=== PATIENT | female | born 1990 | race Caucasian/White ===

== ENCOUNTER 2017-01-27 23:51 | Emergency (ER) | payer OTHER ==
[~2017-01-27 23:51] MED LIST: ACETAMINOPHEN500 MG PO; PRENATAL1 TAB; VICODIN EQUIVAL1 TAB PO
--- NOTE | 2017-01-28 02:14 | ED CLINICAL REPORT ---
Clinical Report - Physicians/Mid Levels [facility] [address] [place] [place] [address] 01/27/2017 23:51 Patient: LORI PEARSON Time Seen: 00:26 Jan 28 2017. Arrived- By private vehicle. Historian- patient. CPT: ER phys charges level 3 (#[id number]). HISTORY OF PRESENT ILLNESS Chief Complaint: SINUS PAIN. This started today This morning woke up with this.; This started today. She has had moderate sinus pain and chills. Reports muscle aches and experiencing sweating episodes. ( Lymphadenopathy; denies ST just states her nodes are swollen). and is still present. The illness is described as moderate. The patient has had a mild cough productive of green sputum. She has had sinus pressure, chills and muscle aches. No sore throat. Additional history - No known contact with a sick individual. Similar symptoms previously: As bad. Diagnosis: sinusitis. Recent medical care: Not recently seen/assessed. REVIEW OF SYSTEMS No headache, eye discomfort, nausea, vomiting or diarrhea. No abdominal pain, hay fever, pedal edema, calf pain or difficulty with urination. No skin rash. She has had enlarged lymph nodes. All systems otherwise negative, except as recorded above. PAST HISTORY Bronchospasm. URI. Tension-Type Headache. Sinusitis. Dental Caries. Asthma. Tonsillitis. Back Pain. Immunizations. LNMP - Last Normal Menstrual Period. ADDITIONAL SURGERIES: Tonsillectomy. Medications: None. Allergies: Penicillins. SOCIAL HISTORY Alcohol use. History of drug use: marijuana. ADDITIONAL NOTES The nursing notes have been reviewed. PHYSICAL EXAM Vital Signs: 01/27/2017 23:56 BP: 136/79. HR: 111. RR: 18. O2 saturation: 96%. Temp: 99 F. Pain level now: 9/10. Appearance: Alert. Anxious. Patient in mild distress. Head: Tenderness present to percussion/palpation of the sinuses: moderate right and left maxillary tenderness. Eyes: Pupils equal, round and reactive to light. Eyes normal inspection. ENT: Ears normal. Nose normal. Pharynx normal. Uvula midline. Neck: Normal inspection. Neck supple. CVS: Normal heart rate and rhythm. Heart sounds normal. Pulses normal. Respiratory: No respiratory distress. Expiratory wheezes in the right and left upper lung anteriorly. Abdomen: Soft and nontender. Back: Normal inspection. Skin: Skin warm. Normal skin color. No rash. Extremities: Extremities exhibit normal ROM. No calf tenderness. No lower extremity edema. Neuro: Oriented X 3. No motor deficit. No sensory deficit. LABS, X-RAYS, AND EKG Laboratory Tests: Rapid Influenza Screen: (SAILAJA: 01/28/2017 00:00) ( MsgRcvd 01/28/2017 00:22) Final results SPECIMEN DESCRIPTION: NASAL PHARYNGEAL Test Result Flag Units (Reference) RAPID INFLUENZA SCREEN DATE: 01/28/17 INFLUENZA A: NEGATIVE SCREEN FOR INFLUENZA A INFLUENZA B: NEGATIVE SCREEN FOR INFLUENZA B . Note - Tests: (Latham sinus negative.). PROGRESS AND PROCEDURES Patient/family counseled. Disposition: Discharged. Condition: stable. CLINICAL IMPRESSION Acute bacterial bronchitis. Acute maxillary sinusitis. INSTRUCTIONS No strenuous activity. Rest. Do not work for two days until better. Drink plenty of fluids. Warnings: Further evaluation is necessary. GENERAL WARNINGS: Return or contact your physician immediately if your condition worsens or changes unexpectedly, if not improving as expected, or if other problems arise. Prescription Medications: Albuterol HFA oral inhaler: inhale 2 puffs via spacer every 4 hours as needed for wheezing or difficulty breathing, until symptoms improve. Dispense one (1) unit. No refill. Zithromax 250 mg tablets: take 1 orally every day for 4 days. Total course 4 days. No refills. Substitution is permissible. OTC Medications: Acetaminophen (available over the counter): take according to label instructions. Follow-up: Follow up with your doctor in two days if not better. Understanding of the discharge instructions verbalized by patient. (Electronically signed by Kaz Baird MD 01/31/2017 10:50)
--- NOTE | 2017-01-28 02:14 | ED CLINICAL REPORT ---
Clinical Report - Physicians/Mid Levels [facility] [address] [place] [place] [address] 01/27/2017 23:51 Patient: LORI PEARSON Time Seen: 00:26 Jan 28 2017. Arrived- By private vehicle. Historian- patient. CPT: ER phys charges level 3 (#[id number]). HISTORY OF PRESENT ILLNESS Chief Complaint: SINUS PAIN. This started today This morning woke up with this.; This started today. She has had moderate sinus pain and chills. Reports muscle aches and experiencing sweating episodes. ( Lymphadenopathy; denies ST just states her nodes are swollen). and is still present. The illness is described as moderate. The patient has had a mild cough productive of green sputum. She has had sinus pressure, chills and muscle aches. No sore throat. Additional history - No known contact with a sick individual. Similar symptoms previously: As bad. Diagnosis: sinusitis. Recent medical care: Not recently seen/assessed. REVIEW OF SYSTEMS No headache, eye discomfort, nausea, vomiting or diarrhea. No abdominal pain, hay fever, pedal edema, calf pain or difficulty with urination. No skin rash. She has had enlarged lymph nodes. All systems otherwise negative, except as recorded above. PAST HISTORY Bronchospasm. URI. Tension-Type Headache. Sinusitis. Dental Caries. Asthma. Tonsillitis. Back Pain. Immunizations. LNMP - Last Normal Menstrual Period. ADDITIONAL SURGERIES: Tonsillectomy. Medications: None. Allergies: Penicillins. SOCIAL HISTORY Alcohol use. History of drug use: marijuana. ADDITIONAL NOTES The nursing notes have been reviewed. PHYSICAL EXAM Vital Signs: 01/27/2017 23:56 BP: 136/79. HR: 111. RR: 18. O2 saturation: 96%. Temp: 99 F. Pain level now: 9/10. Appearance: Alert. Anxious. Patient in mild distress. Head: Tenderness present to percussion/palpation of the sinuses: moderate right and left maxillary tenderness. Eyes: Pupils equal, round and reactive to light. Eyes normal inspection. ENT: Ears normal. Nose normal. Pharynx normal. Uvula midline. Neck: Normal inspection. Neck supple. CVS: Normal heart rate and rhythm. Heart sounds normal. Pulses normal. Respiratory: No respiratory distress. Expiratory wheezes in the right and left upper lung anteriorly. Abdomen: Soft and nontender. Back: Normal inspection. Skin: Skin warm. Normal skin color. No rash. Extremities: Extremities exhibit normal ROM. No calf tenderness. No lower extremity edema. Neuro: Oriented X 3. No motor deficit. No sensory deficit. LABS, X-RAYS, AND EKG Laboratory Tests: Rapid Influenza Screen: (SAILAJA: 01/28/2017 00:00) ( MsgRcvd 01/28/2017 00:22) Final results SPECIMEN DESCRIPTION: NASAL PHARYNGEAL Test Result Flag Units (Reference) RAPID INFLUENZA SCREEN DATE: 01/28/17 INFLUENZA A: NEGATIVE SCREEN FOR INFLUENZA A INFLUENZA B: NEGATIVE SCREEN FOR INFLUENZA B . Note - Tests: (Latham sinus negative.). PROGRESS AND PROCEDURES Patient/family counseled. Disposition: Discharged. Condition: stable. CLINICAL IMPRESSION Acute bacterial bronchitis. Acute maxillary sinusitis. INSTRUCTIONS No strenuous activity. Rest. Do not work for two days until better. Drink plenty of fluids. Warnings: Further evaluation is necessary. GENERAL WARNINGS: Return or contact your physician immediately if your condition worsens or changes unexpectedly, if not improving as expected, or if other problems arise. Prescription Medications: Albuterol HFA oral inhaler: inhale 2 puffs via spacer every 4 hours as needed for wheezing or difficulty breathing, until symptoms improve. Dispense one (1) unit. No refill. Zithromax 250 mg tablets: take 1 orally every day for 4 days. Total course 4 days. No refills. Substitution is permissible. OTC Medications: Acetaminophen (available over the counter): take according to label instructions. Follow-up: Follow up with your doctor in two days if not better. Understanding of the discharge instructions verbalized by patient. (Electronically signed by Kaz Baird MD 01/31/2017 10:50)
--- NOTE | 2017-01-28 02:14 | ED NURSING NOTES ---
Clinical Report - [facility] [address] [address] 01/27/2017 23:51 Patient: LORI PEARSON TRIAGE Triage time 23:56. Acuity: LEVEL 4. Chief Complaint: BODY ACHES and (Onset today. Believes it is a sinus infection. Alleviating factors: none.). Alert. SEPSIS SCREEN: Sepsis Screen: negative. Negative (no infection suspected/documented). --00:00 Chip Mckeon R.N. 23:56 01/27/17. BP: 136/79 (regular adult cuff) taken on the left arm, via an automated monitor, while sitting. HR: 111 (tachycardic). RR: 18 (regular, unlabored and normal). O2 saturation: 96% on room air. Temp: 99 F (oral). Pain level now: 08/11. --00:00 Chip Mckeon R.N. Weight: 113.3 kg stated. Height/Length: 67 inches Per Patient. BMI: 39.2. --23:57 Chip Mckeon R.N. Medications None. --23:59 Chip Mckeon R.N. Medication/allergy information source: the patient. --00:00 Chip Mckeon R.N. Allergies Penicillins. --23:59 Chip Mckeon R.N. History Arrived by private vehicle. Historian: patient. Primary physician (None). This started today. She has had moderate sinus pain and chills. Reports muscle aches and experiencing sweating episodes. ( Lymphadenopathy; denies ST just states her nodes are swollen). 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 (Ibuprofen last dose 01/27/17 AM). PAST MEDICAL HX: Last normal menstrual period- Now. Has not received seasonal influenza immunization. SOCIAL HX: Never smoker. Alcohol use. History of weekly drug use: marijuana. Recently used drugs days ago. She has not traveled outside the [place] The patient was not exposed to MRSA. No infectious disease exposure. ABUSE ASSESSMENT: Abuse assessment: The patient was asked "Do you feel safe in your home?" and "Has anyone hurt you or threatened to hurt you?". No report of abuse. SELF HARM ASSESSMENT: A self harm assessment was performed. The patient answered "no" to the question "Do you have thoughts of harming or killing yourself?" and "Have you recently had thoughts about harming or killing others?". FALL RISK ASSESSMENT: Fall risk assessment completed. No fall risk identified. NUTRITIONAL RISK ASSESSMENT: The nutritional risk assessment revealed no deficiencies. FUNCTIONAL ASSESSMENT: Functional assessment: no impairments noted. LEARNING NEEDS ASSESSMENT: The learning needs assessment revealed no barriers. SKIN INTEGRITY ASSESSMENT: Skin integrity risk assessment completed. No skin integrity risk identified. --00:00 Chip Mckeon R.N. PROBLEMS: Bronchospasm. URI. Tension-Type Headache. Sinusitis. Dental Caries. Asthma. Tonsillitis. Back Pain. Immunizations. LNMP - Last Normal Menstrual Period. --23:59 Chip Mckeon R.N. ADDITIONAL SURGERIES: Tonsillectomy. --23:59 Chip Mckoen R.N. Assessment GENERAL / NEURO / PSYCH: Alert. Oriented X 4. Dunbar Coma Scale: 15- eyes open spontaneously (4); best verbal response- oriented x 4 (5); best motor response- obeys commands (6). Patient appears calm and cooperative. RESPIRATORY: Respirations not labored. SKIN: Skin is warm and dry. --00:00 Chip Mckeon R.N. Interventions ID band on patient. To treatment room. --00:00 Chip Mckeon R.N. PHYSICAL ASSESSMENT Ambulatory to room. GENERAL / NEURO / PSYCH: Alert. Oriented X 4. She appears uncomfortable. HEENT: Right maxillary and left maxillary sinus tenderness present. Right maxillary and left maxillary sinus tenderness present. Right ear within normal limits. Left ear within normal limits. Pharyngeal erythema. Pharynx within normal limits. Voice within normal limits. ( Anterior chain lymphadenopathy.). Mucous membranes are pink. RESPIRATORY: Respirations not labored. Chest nontender. Wheezing present (Very mild wheezes noted to posterior L lower lobe and R mid lobe.). No cough. CVS: Heart sounds within normal limits. Pulses: right radial 2+ and left radial 2+. Capillary refill less than 2 seconds. GI / : Abdomen soft and nontender. SKIN: Hot skin. --00:08 Chip Mckeon R.N. BACK: ( Paraspinal pain in cervical area.). --00:09 Chip Mckeon R.N. NURSING PROGRESS NOTES The initial plan of care for this patient has been created This plan of care was discussed with the patient. Reassurance given to the patient. Two patient identifiers checked. Call light placed in reach. Side rails up x 1. Bed placed in lowest position. Brakes of bed on. Patient ready for evaluation- ED physician notified. --00:00 Chip Mckeon R.N. Patient ID band checked for patient name and birthdate: patient confirmed. Flu swab obtained by RN via nasal swab. Labeled in the presence of the patient and sent to lab. --00:09 Chip Mckeon R.N. 00:47 01/28/2017 Albuterol Neb TX Nebulizer 2.5 mg given. Given by the nurse. Allergies verified and confirmed 5 rights. --00:47 Chip Mckeon R.N. 02:16 01/28/2017 Zithromax PO Tablets 500 mg given. Allergies verified and confirmed 5 rights. --02:16 Chip Mckeon R.N. 02:37 01/28/2017 Zithromax PO Response: no adverse reaction. --02:37 Chip Mckeon R.N. 02:37 01/28/2017 Albuterol Neb TX Response: no adverse reaction symptoms have improved. --02:37 Chip Mckeon R.N. DISPOSITION / DISCHARGE Departure time: 02:37. Condition at departure: stable. The goals identified in the patient's plan of care were met. No learning barriers present. Discharge instructions provided and reviewed with the patient. Reviewed medication(s) side effects, precautions, dosing and course information. Prescription(s) given to the patient (Lori verbalizes importance of finishing all prescribed antibiotics.). Reviewed need for increased fluid intake. Activity restrictions (rest) reviewed. Work note given. Patient verbalized understanding. Written instructions provided in Colombian. ( Lori verbalizes understanding of all d/c instructions including need to f/u with PCP. She has no questions and voices no concerns at this time.). The patient was discharged by the physician. She was discharged home and accompanied by spouse. She left the Emergency Department ambulatory and via private vehicle. Spouse driving. AL COMA SCORE: Dunbar Coma Scale: 15- eyes open spontaneously (4); best verbal response- oriented x 4 (5); best motor response- obeys commands (6). --02:37 Chip Mckeon R.N. 02:35 01/28/17. BP: 117/46 (large adult cuff) taken on the left arm, via an automated monitor, while sitting. HR: 83 (normal rate). RR: 16 (regular, unlabored and normal). O2 saturation: 100% on room air. Temp: 98.7 F (oral). Pain level now: 07/11. --02:37 Chip Mckeon R.N. Locked/Released at 01/28/2017 2:38 by Chip Mckeon R.N.
--- NOTE | 2017-01-28 02:15 | ED ORDER SUMMARY ---
..... Patient: LORI PEARSON OrderSheet [facility] VisitID: [id number] [address] [address] 26y, F Registration Date/Time: 01/27/2017 ORDER SHEET Weight: 113.3 kg (stated) Allergies: Penicillins GENERAL ORDERS: Rapid Influenza Screen (Nasal Pharyngeal) (nasal pharyngeal ) Urgent (00:06 01/28/2017 HSoule per protocol) (Ack 0:08 Angelegekimana) (0:09 JDeElena R.N.) Sinuses less than 3V (alvarado) Urgent (00:36 01/28/2017 Adam ZHONG) (Ack 0:38 Gerald) (1:28 JDeAna Lauraa R.N.) MEDICATION ORDERS: Albuterol Neb Tx 2.5 mg (NOW, HHN) (00:35 01/28/2017 Adam ZHONG) (Ack 0:38 HSoule) (0:47 JDeElena R.N.) Zithromax PO 500 mg (NOW) (02:13 01/28/2017 Adam ZHONG) (Ack 2:14 JDeJessica R.N.) (2:16 JDeJessica R.N.) IV FLUIDS: ORDER SHEET NOTES: [Electronically signed by Chip cMkeon R.N. (02:38 01/28/2017)] [Electronically signed by Kaz Baird MD (10:50 01/31/2017)] [Electronically locked/signed by Chip Mckeon R.N. (02:38 01/28/2017)]
--- NOTE | 2017-01-28 02:15 | ED ORDER SUMMARY ---
..... Patient: LORI PEARSON OrderSheet [facility] VisitID: [id number] [address] [place] [address] 26y, F Registration Date/Time: 01/27/2017 ORDER SHEET Weight: 113.3 kg (stated) Allergies: Penicillins GENERAL ORDERS: Rapid Influenza Screen (Nasal Pharyngeal) (nasal pharyngeal ) Urgent (00:06 01/28/2017 HSoule per protocol) (Ack 0:08 Angelegekimana) (0:09 JDeElena R.N.) Sinuses less than 3V (alvarado) Urgent (00:36 01/28/2017 Adam ZHONG) (Ack 0:38 Gerald) (1:28 JDeAna Lauraa R.N.) MEDICATION ORDERS: Albuterol Neb Tx 2.5 mg (NOW, HHN) (00:35 01/28/2017 Adam ZHONG) (Ack 0:38 HSoule) (0:47 JDeElena R.N.) Zithromax PO 500 mg (NOW) (02:13 01/28/2017 Adam ZHONG) (Ack 2:14 JDeJessica R.N.) (2:16 JDeJessica R.N.) IV FLUIDS: ORDER SHEET NOTES: [Electronically signed by Chip Mckeon R.N. (02:38 01/28/2017)] [Electronically signed by Kaz Baird MD (10:50 01/31/2017)] [Electronically locked/signed by Chip Mckeon R.N. (02:38 01/28/2017)]
--- NOTE | 2017-01-28 06:00 | DIAGNOSTIC IMAGING REPORT ---
PROCEDURE: XR SINUSES LESS THAN 3 VIEWS INDICATION: MAXILLARY PRESSURE TECHNIQUE: Two alvarado view. COMPARISON: None. FINDINGS: Paranasal sinuses are clear. IMPRESSION: 1. Normal sinuses.
--- NOTE | 2017-01-28 06:00 | DIAGNOSTIC IMAGING REPORT ---
PROCEDURE: XR SINUSES LESS THAN 3 VIEWS INDICATION: MAXILLARY PRESSURE TECHNIQUE: Two alvarado view. COMPARISON: None. FINDINGS: Paranasal sinuses are clear. IMPRESSION: 1. Normal sinuses.
--- NOTE | 2017-01-31 10:51 | ED MED RECONCILIATION SUMMARY ---
Patient: LORI PEARSON Medication Reconciliation Report [facility] VisitID: [id number] [address] [place] [address] 26y, F Registration Date/Time: 01/27/2017 Weight: 113.3 kg Height/Length: 67 in. BMI: 39.2 ALLERGIES: Penicillins The patient's Home Medications are listed below: NONE. The source(s) of the original Home Medication information: patient The following Medications were given to the patient in the Emergency Department: Albuterol [Neb Tx] Neb TX 2.5 mg, administered: 01/28/2017 12:47:00 AM Zithromax [PO] PO 500 mg, administered: 01/28/2017 2:16:00 AM The following Medications were prescribed to the patient: Acetaminophen (available over the counter): take according to label instructions. -- Kaz Baird MD Albuterol HFA oral inhaler: inhale 2 puffs via spacer every 4 hours as needed for wheezing or difficulty breathing, until symptoms improve. Dispense one (1) unit. No refill. -- Kaz Baird MD Zithromax 250 mg tablets: take 1 orally every day for 4 days. Total course 4 days. No refills. Substitution is permissible. -- Kaz Baird MD
--- NOTE | 2017-01-31 10:51 | ED MAR SUMMARY ---
..... Medication Administration Record [facility] [address] [place] [address] Patient: LORI PEARSON Visit ID: [id number] 26y, F Weight: 113.3 kg Height/Length: 67 in BMI: 39.2 ALLERGIES: Penicillins Given 00:47 01/28/2017 Chip Mckeon, RClaudiaNClaudia Medication Administered: ALBUTEROL [NEB TX], Dose: 2.5 mg Nebulizer Neb TX. Medication Ordered: Albuterol Neb Tx 2.5 mg (NOW, [facility]). Given 02:16 01/28/2017 Chip Mckeon, RClaudiaNClaudia Medication Administered: ZITHROMAX [PO], Dose: 500 mg Tablets PO. Medication Ordered: Zithromax PO 500 mg (NOW).
--- NOTE | 2017-01-31 10:51 | ED MED RECONCILIATION SUMMARY ---
Patient: LORI PEARSON Medication Reconciliation Report [facility] VisitID: [id number] [address] [place] [address] 26y, F Registration Date/Time: 01/27/2017 Weight: 113.3 kg Height/Length: 67 in. BMI: 39.2 ALLERGIES: Penicillins The patient's Home Medications are listed below: NONE. The source(s) of the original Home Medication information: patient The following Medications were given to the patient in the Emergency Department: Albuterol [Neb Tx] Neb TX 2.5 mg, administered: 01/28/2017 12:47:00 AM Zithromax [PO] PO 500 mg, administered: 01/28/2017 2:16:00 AM The following Medications were prescribed to the patient: Acetaminophen (available over the counter): take according to label instructions. -- Kaz Baird MD Albuterol HFA oral inhaler: inhale 2 puffs via spacer every 4 hours as needed for wheezing or difficulty breathing, until symptoms improve. Dispense one (1) unit. No refill. -- Kaz Baird MD Zithromax 250 mg tablets: take 1 orally every day for 4 days. Total course 4 days. No refills. Substitution is permissible. -- Kaz Baird MD
--- NOTE | 2017-01-31 10:51 | ED DISCHARGE INSTRUCTIONS ---
Patient: LORI PEARSON General [facility]ructions [facility] VisitID: [id number] [place] [address] 26y, F Registration Date/Time: 01/27/2017 Acute bacterial bronchitis. Acute maxillary sinusitis. INSTRUCTIONS No strenuous activity. Rest. Do not work for two days until better. Drink plenty of fluids. Warnings: Further evaluation is necessary. GENERAL WARNINGS: Return or contact your physician immediately if your condition worsens or changes unexpectedly, if not improving as expected, or if other problems arise. Prescription Medications: Albuterol HFA oral inhaler: inhale 2 puffs via spacer every 4 hours as needed for wheezing or difficulty breathing, until symptoms improve. Dispense one (1) unit. No refill. Zithromax 250 mg tablets: take 1 orally every day for 4 days. Total course 4 days. No refills. Substitution is permissible. OTC Medications: Acetaminophen (available over the counter): take according to label instructions. Follow-up: Follow up with your doctor in two days if not better. Understanding of the discharge instructions verbalized by patient. ADDITIONAL INFORMATION Bronchitis (Adult: Abx Tx) BRONCHITIS is an infection of the air passages (bronchial tubes). It often occurs during the common cold. Symptoms include cough with mucus (phlegm) and low-grade fever. Bronchitis usually lasts 7-14 days. Mild cases can be treated with simple home remedies. More severe infection is treated with an antibiotic. Home Care: If symptoms are severe, rest at home for the first 2-3 days. When you resume activity, don't let yourself get too tired. Do not smoke. Avoid being exposed to the smoke of others. You may use acetaminophen (Tylenol) or ibuprofen (Motrin, Advil) to control fever or pain, unless another medicine was prescribed for this. [NOTE: If you have chronic liver or kidney disease or ever had a stomach ulcer or GI bleeding, talk with your doctor before using these medicines.] Your appetite may be poor, so a light diet is fine. Avoid dehydration by drinking 6-8 glasses of fluids per day (water, soft, drinks, juices, tea, soup, etc.). Extra fluids will help loosen secretions in the lungs. Ckxk-wwo-umxwyoe cough medicines that containdextromethorphan(such as Robitussin DM) and decongestants (Actifed or Sudafed) may help relieve cough and congestion. [NOTE: Do not use decongestants if you have high blood pressure.] Finish all antibiotic medicine, even if you are feeling better after only a few days. Follow Up with your doctor or as directed if you dont start to feel better after three days. [NOTE: If you are age 65 or older, or if you have chronic asthma or COPD, we recommend a PNEUMOCOCCAL VACCINATION every five years and a yearly INFLUENZAVACCINATION (FLU-SHOT) every . Ask your doctor about this. If you had an X-ray, a radiologist will review it. You will be notified of any new findings that may affect your care.] Get Prompt Medical Attention if any of the following occur: Fever over 100.4F (38.0C) for more than three days Trouble breathing, wheezing or pain with breathing Coughing up blood or increased amounts of colored sputum Weakness, drowsiness, headache, facial pain, ear pain or a stiff neck Albuterol Sulfate Pressurized inhalation, suspension What is this medicine? ALBUTEROL (al BYOO ter ole) is a bronchodilator. It helps open up the airways in your lungs to make it easier to breathe. This medicine is used to treat and to prevent bronchospasm. How should I use this medicine? This medicine is for inhalation through the mouth. Follow the directions on your prescription label. Take your medicine at regular intervals. Do not use more often than directed. Make sure that you are using your inhaler correctly. Ask you doctor or health care provider if you have any questions. Talk to your forestry consultant regarding the use of this medicine in children. Special care may be needed. What side effects may I notice from receiving this medicine? Side effects that you should report to your doctor or health patient care technician as soon as possible: allergic reactions like skin rash, itching or hives, swelling of the face, lips, or tongue breathing problems chest pain feeling faint or lightheaded, falls high blood pressure irregular heartbeat fever muscle cramps or weakness pain, tingling, numbness in the hands or feet vomiting Side effects that usually do not require medical attention (report to your doctor or health patient care technician if they continue or are bothersome): cough difficulty sleeping headache nervousness or trembling stomach upset stuffy or runny nose throat irritation unusual taste What may interact with this medicine? anti-infectives like chloroquine and pentamidine caffeine cisapride diuretics medicines for colds medicines for depression or for emotional or psychotic conditions medicines for weight loss including some herbal products methadone some antibiotics like clarithromycin, erythromycin, levofloxacin, and linezolid some heart medicines steroid hormones like dexamethasone, cortisone, hydrocortisone theophylline thyroid hormones What if I miss a dose? If you miss a dose, use it as soon as you can. If it is almost time for your next dose, use only that dose. Do not use double or extra doses. Where should I keep my medicine? Keep out of the reach of children. Store at room temperature between 15 and 30 degrees C (59 and 86 degrees F). The contents are under pressure and may burst when exposed to heat or flame. Do not freeze. This medicine does not work as well if it is too cold. Throw away any unused medicine after the expiration date. Inhalers need to be thrown away after the labeled number of puffs have been used or by the expiration date; whichever comes first. Ventolin HFA should be thrown away 12 months after removing from foil pouch. Check the instructions that come with your medicine. What should I tell my health care provider before I take this medicine? They need to know if you have any of the following conditions: diabetes heart disease or irregular heartbeat high blood pressure pheochromocytoma seizures thyroid disease an unusual or allergic reaction to albuterol, levalbuterol, sulfites, other medicines, foods, dyes, or preservatives or trying to get breast-feeding What should I watch for while using this medicine? Tell your doctor or health patient care technician if your symptoms do not improve. Do not use extra albuterol. If your asthma or bronchitis gets worse while you are using this medicine, call your doctor right away. If your mouth gets dry try chewing sugarless gum or sucking hard candy. Drink water as directed. Azithromycin Oral tablet What is this medicine? AZITHROMYCIN (az ith pooja MYE sin) is a macrolide antibiotic. It is used to treat or prevent certain kinds of bacterial infections. It will not work for colds, flu, or other viral infections. How should I use this medicine? Take this medicine by mouth with a full glass of water. Follow the directions on the prescription label. The tablets can be taken with food or on an empty stomach. If the medicine upsets your stomach, take it with food. Take your medicine at regular intervals. Do not take your medicine more often than directed. Take all of your medicine as directed even if you think your are better. Do not skip doses or stop your medicine early. Talk to your forestry consultant regarding the use of this medicine in children. Special care may be needed. What side effects may I notice from receiving this medicine? Side effects that you should report to your doctor or health patient care technician as soon as possible: allergic reactions like skin rash, itching or hives, swelling of the face, lips, or tongue confusion, nightmares or hallucinations dark urine difficulty breathing hearing loss irregular heartbeat or chest pain pain or difficulty passing urine redness, blistering, peeling or loosening of the skin, including inside the mouth white patches or sores in the mouth yellowing of the eyes or skin Side effects that usually do not require medical attention (report to your doctor or health patient care technician if they continue or are bothersome): diarrhea dizziness, drowsiness headache stomach upset or vomiting tooth discoloration vaginal irritation What may interact with this medicine? Do not take this medicine with any of the following medications: lincomycin This medicine may also interact with the following medications: amiodarone antacids cyclosporine digoxin magnesium nelfinavir phenytoin warfarin What if I miss a dose? If you miss a dose, take it as soon as you can. If it is almost time for your next dose, take only that dose. Do not take double or extra doses. Where should I keep my medicine? Keep out of the reach of children. Store at room temperature between 15 and 30 degrees C (59 and 86 degrees F). Throw away any unused medicine after the expiration date. What should I tell my health care provider before I take this medicine? They need to know if you have any of these conditions: kidney disease liver disease irregular heartbeat or heart disease an unusual or allergic reaction to azithromycin, erythromycin, other macrolide antibiotics, foods, dyes, or preservatives or trying to get breast-feeding What should I watch for while using this medicine? Tell your doctor or health patient care technician if your symptoms do not improve. Do not treat diarrhea with over the counter products. Contact your doctor if you have diarrhea that lasts more than 2 days or if it is severe and watery. This medicine can make you more sensitive to the sun. Keep out of the sun. If you cannot avoid being in the sun, wear protective clothing and use sunscreen. Do not use sun lamps or tanning beds/booths. You have been given the following additional information: Bronchitis, Antiobiotic Treatment (Adult) Albuterol Sulfate Pressurized inhalation, suspension Azithromycin Oral tablet No strenuous activity. Rest. Do not work for two days until better. (Electronically signed by Kaz Baird MD 01/31/2017 10:50)
--- NOTE | 2017-01-31 10:51 | ED MAR SUMMARY ---
..... Medication Administration Record [facility] [address] [place] [address] Patient: LORI PEARSON Visit ID: [id number] 26y, F Weight: 113.3 kg Height/Length: 67 in BMI: 39.2 ALLERGIES: Penicillins Given 00:47 01/28/2017 Chip Mckeon, RClaudiaNClaudia Medication Administered: ALBUTEROL [NEB TX], Dose: 2.5 mg Nebulizer Neb TX. Medication Ordered: Albuterol Neb Tx 2.5 mg (NOW, [facility]). Given 02:16 01/28/2017 Chip Mckeon, RClaudiaNClaudia Medication Administered: ZITHROMAX [PO], Dose: 500 mg Tablets PO. Medication Ordered: Zithromax PO 500 mg (NOW).
== END 2017-01-28 02:35 | disposition home or self-care (01) ==
LOC: ED SRH 23:51
DX: J20.8 Acute bronchitis due to other specified organisms (principal); J01.00 Acute maxillary sinusitis, unspecified; J45.909 Unspecified asthma, uncomplicated; Z88.0 Allergy status to penicillin
CPT/HCPCS: 91400

== ENCOUNTER 2017-01-29 20:49 | Emergency (ER) | payer OTHER ==
--- NOTE | 2017-01-29 21:39 | ED CLINICAL REPORT ---
Clinical Report - Physicians/Mid Levels [facility] [address] [place] [address] 01/29/2017 20:50 Patient: LORI PEARSON Time Seen: 21:15. Arrived- By private vehicle. Historian- patient. HISTORY OF PRESENT ILLNESS Chief Complaint: COUGH, SINUS PAIN, CHILLS and MUSCLE ACHES. This started several days ago and is still present. It was gradual in onset and has been constant. The illness is described as moderate. The patient has had a cough, hoarseness, nasal congestion, sinus pressure and fever. She has had chills and muscle aches. She has had scant amounts of green sputum. No difficulty breathing or chest discomfort or pain. Additional history - No known contact with a sick individual. Similar symptoms previously: Recent medical care: The patient was seen recently at this facility. Seen for similar symptoms. Evaluation/treatment: antibiotic prescribed and see medication list. Diagnosis: sinusitis and bronchitis. REVIEW OF SYSTEMS The patient has had a subjective fever, chills, fatigue and nausea and experienced sweats. No calf pain, chest pain, palpitations, abdominal pain or constipation. No diarrhea, vomiting or urinary problems. All systems otherwise negative, except as recorded above. SOCIAL HISTORY Never smoker. No alcohol use or drug use. FAMILY HISTORY No significant family medical history. ADDITIONAL NOTES The nursing notes have been reviewed. PHYSICAL EXAM Vital Signs: 01/29/2017 21:00 BP: 146/86. HR: 113. RR: 22. O2 saturation: 100%. Temp: 100.4 F. Pain level now: 8/10. Have been reviewed. Appearance: Alert. Head: Tenderness present to percussion/palpation of the sinuses. Eyes: Pupils equal, round and reactive to light. ENT: Ears normal. Minimal, thin, clear nasal discharge present. Pharynx normal. Uvula midline. Neck: Normal inspection. Neck supple. CVS: Normal heart rate and rhythm. Heart sounds normal. Respiratory: No respiratory distress. Breath sounds normal. Abdomen: Soft and nontender. No organomegaly. Back: Normal inspection. No CVA tenderness. Skin: Skin warm but moist. Normal skin color. Normal skin turgor. Extremities: Extremities exhibit normal ROM. No calf tenderness. No lower extremity edema. PROGRESS AND PROCEDURES Course of Care: Patient is stable. Patient/family counseled. Old medical records reviewed. Disposition: Discharged. Condition: stable. CLINICAL IMPRESSION Acute maxillary sinusitis (likely viral). INSTRUCTIONS Rest. Do not work tomorrow. Drink plenty of fluids. Warnings: GENERAL WARNINGS: Return or contact your physician immediately if your condition worsens or changes unexpectedly, if not improving as expected, or if other problems arise. Your Current Medications: CONTINUE TAKING THE FOLLOWING MEDICATIONS: Zithromax Oral. Understanding of the discharge instructions verbalized by patient. Follow-up with: [facility], , , [address], [facility], [id number] Follow up in seven days if not better. (Electronically signed by Isac Conley MD 01/29/2017 23:40)
--- NOTE | 2017-01-29 21:39 | ED CLINICAL REPORT ---
Clinical Report - Physicians/Mid Levels [facility] [address] [place] [address] 01/29/2017 20:50 Patient: LORI PEARSON Time Seen: 21:15. Arrived- By private vehicle. Historian- patient. HISTORY OF PRESENT ILLNESS Chief Complaint: COUGH, SINUS PAIN, CHILLS and MUSCLE ACHES. This started several days ago and is still present. It was gradual in onset and has been constant. The illness is described as moderate. The patient has had a cough, hoarseness, nasal congestion, sinus pressure and fever. She has had chills and muscle aches. She has had scant amounts of green sputum. No difficulty breathing or chest discomfort or pain. Additional history - No known contact with a sick individual. Similar symptoms previously: Recent medical care: The patient was seen recently at this facility. Seen for similar symptoms. Evaluation/treatment: antibiotic prescribed and see medication list. Diagnosis: sinusitis and bronchitis. REVIEW OF SYSTEMS The patient has had a subjective fever, chills, fatigue and nausea and experienced sweats. No calf pain, chest pain, palpitations, abdominal pain or constipation. No diarrhea, vomiting or urinary problems. All systems otherwise negative, except as recorded above. SOCIAL HISTORY Never smoker. No alcohol use or drug use. FAMILY HISTORY No significant family medical history. ADDITIONAL NOTES The nursing notes have been reviewed. PHYSICAL EXAM Vital Signs: 01/29/2017 21:00 BP: 146/86. HR: 113. RR: 22. O2 saturation: 100%. Temp: 100.4 F. Pain level now: 8/10. Have been reviewed. Appearance: Alert. Head: Tenderness present to percussion/palpation of the sinuses. Eyes: Pupils equal, round and reactive to light. ENT: Ears normal. Minimal, thin, clear nasal discharge present. Pharynx normal. Uvula midline. Neck: Normal inspection. Neck supple. CVS: Normal heart rate and rhythm. Heart sounds normal. Respiratory: No respiratory distress. Breath sounds normal. Abdomen: Soft and nontender. No organomegaly. Back: Normal inspection. No CVA tenderness. Skin: Skin warm but moist. Normal skin color. Normal skin turgor. Extremities: Extremities exhibit normal ROM. No calf tenderness. No lower extremity edema. PROGRESS AND PROCEDURES Course of Care: Patient is stable. Patient/family counseled. Old medical records reviewed. Disposition: Discharged. Condition: stable. CLINICAL IMPRESSION Acute maxillary sinusitis (likely viral). INSTRUCTIONS Rest. Do not work tomorrow. Drink plenty of fluids. Warnings: GENERAL WARNINGS: Return or contact your physician immediately if your condition worsens or changes unexpectedly, if not improving as expected, or if other problems arise. Your Current Medications: CONTINUE TAKING THE FOLLOWING MEDICATIONS: Zithromax Oral. Understanding of the discharge instructions verbalized by patient. Follow-up with: [facility], , , [address], [facility], [id number] Follow up in seven days if not better. (Electronically signed by Isac Conley MD 01/29/2017 23:40)
--- NOTE | 2017-01-29 21:39 | ED NURSING NOTES ---
Clinical Report - Nurses [facility] [address] [place] [address] 01/29/2017 20:50 Patient: LORI PEARSON TRIAGE Triage time 21:Jan 29 2017. Acuity: LEVEL 4. Chief Complaint: (sinus pain, nausea, vomiting.). 21:03 01/29/17. SEPSIS SCREEN: Sepsis Screen. Infection suspected/documented. Heart rate greater than 90. WANDER COMA SCORE: Wander Coma Scale: 15- eyes open spontaneously (4); best verbal response- oriented x 4 (5); best motor response- obeys commands (6). --21:03 Nancie Koehler R.N. <<STRICKEN ENTRY-- 21:00 01/29/17. BP: 146/86. HR: 113. RR: 22. O2 saturation: 100%. Temp: 100.4 F. Pain level now: 07/11. --21:03 Nancie Koehler R.N. --END STRIKE>> Charted on wrong patient. --21:54 Nancie Koehler R.N. 21:00 01/29/17. BP: 146/86. HR: 114. RR: 22. O2 saturation: 100%. Temp: 100.4 F. Pain level now: 02/08. --21:56 Nancie Koehler R.N. Weight: 113.3 kg stated. Height/Length: 67 inches Per Patient. BMI: 39.2. --20:59 Nancie Koehler R.N. Medications Zithromax Oral. --21:02 Nancie Koehler R.N. Allergies Penicillins. --21:00 Nancie Koehler R.N. Medication/allergy information source: the patient. --21:03 Nancie Koehler R.N. History Arrived by private vehicle. Historian: patient. Accompanied by family. Onset. (3 hours). ( Started on abx 3 days ago here for sinus infection. Now feeling worse). PAST MEDICAL HX: Last normal menstrual period now. SOCIAL HX: Never smoker. No alcohol use or drug use. No infectious disease exposure. ABUSE ASSESSMENT: No report of abuse. SELF HARM ASSESSMENT: A self harm assessment was performed. The patient answered "no" to the question "Have you recently felt down, depressed, or hopeless?", "Have you noticed less interest or pleasure in doing things?", "Do you have thoughts of harming or killing yourself?", "Are you here because you tried to hurt yourself?", "Have you ever tried to hurt yourself before today?", "Have you recently had thoughts about harming or killing others?" and "Do you have any dangerous items in your possession?". --21:03 Nancie Koehler R.N. PROBLEMS: Bronchitis. Tension-Type Headache. Sinusitis. --21:02 Nancie Koehler R.N. ADDITIONAL SURGERIES: Tonsillectomy. --21:02 Nancie Koehler R.N. Interventions ID band on patient. --21:03 Nancie Koehler R.N. PHYSICAL ASSESSMENT 21:01/29/17. GENERAL / NEURO / PSYCH: Alert. Oriented X 4. Appears in distress. (crying). HEENT: Pupils equal, round and reactive to light. No facial asymmetry noted. Mucous membranes are pink. RESPIRATORY: Breath sounds within normal limits. CVS: Pulses within normal limits. GI / : Abdomen nontender. SKIN: Skin intact. Skin is warm and dry. Normal skin turgor. --21:06 Nancie Koehler R.N. NURSING PROGRESS NOTES 21:01/29/17. The initial plan of care for this patient includes an assessment with efforts to address the presence of pain; impairment of the respiratory system. This plan of care was discussed with the patient. Patient gowned. Reassurance given. Patient identifiers checked. Call light placed in reach. Side rails up x 1. Bed placed in lowest position. Brakes of bed on. Patient ready for evaluation. --21:05 Nancie Koehler R.N. DISPOSITION / DISCHARGE 21:57 01/29/17. Departure time: 21:57 Jan 29 2017. Condition at departure: improved and stable. The goals identified in the patient's plan of care were met. No learning barriers present. Discharge instructions provided and reviewed with the patient. Patient verbalized understanding. Written instructions provided in [place]. The patient was discharged home and accompanied by spouse. She left the Emergency Department ambulatory and via private vehicle. Spouse driving. --21:57 Nancie Koehler R.N. 21:00 01/29/17. BP: 146/86. HR: 114. RR: 22. O2 saturation: 100%. Temp: 100.4 F. Pain level now: 02/08. --21:57 Nancie Koehler R.N. Locked/Released at 01/29/2017 21:57 by Nancie Koehler R.N.
--- NOTE | 2017-01-29 23:40 | ED MAR SUMMARY ---
..... Medication Administration Record [facility] [address] [place], [place] [id number] Patient: LORI PEARSON Visit ID: [id number] 26y, F Weight: 113.3 kg Height/Length: 67 in BMI: 39.2 ALLERGIES: Penicillins
--- NOTE | 2017-01-29 23:40 | ED MAR SUMMARY ---
..... Medication Administration Record [facility] [address] [place], [place] [id number] Patient: LORI PEARSON Visit ID: [id number] 26y, F Weight: 113.3 kg Height/Length: 67 in BMI: 39.2 ALLERGIES: Penicillins
--- NOTE | 2017-01-29 23:40 | ED MED RECONCILIATION SUMMARY ---
Patient: DARLEEN PEARSONCA Luis Medication Reconciliation Report [facility] VisitID: [id number] [address] [place] [address] 26y, F Registration Date/Time: 01/29/2017 Weight: 113.3 kg Height/Length: 67 in. BMI: 39.2 ALLERGIES: Penicillins The patient's Home Medications are listed below: CONTINUE TAKING THE FOLLOWING MEDICATIONS: Zithromax Oral The source(s) of the original Home Medication information: patient The following Medications were given to the patient in the Emergency Department: None. The following Medications were prescribed to the patient: None.
--- NOTE | 2017-01-29 23:40 | ED DISCHARGE INSTRUCTIONS ---
Patient: LORI PEARSON General Instructions [facility] VisitID: [id number] [address] [place] [address] 26y, F Registration Date/Time: 01/29/2017 Acute maxillary sinusitis (likely viral). INSTRUCTIONS Rest. Do not work tomorrow. Drink plenty of fluids. Warnings: GENERAL WARNINGS: Return or contact your physician immediately if your condition worsens or changes unexpectedly, if not improving as expected, or if other problems arise. Your Current Medications: CONTINUE TAKING THE FOLLOWING MEDICATIONS: Zithromax Oral. Understanding of the discharge instructions verbalized by patient. Follow-up with: [facility], , , [address], , [place], [id number] Follow up in seven days if not better. ADDITIONAL INFORMATION Sinusitis [Abx Tx] The sinuses are air-filled spaces within the bones of the face. They connect to the inside of the nose. Sinusitis is an inflammation of the tissue lining the sinus cavity. Sinus inflammation can occur during a cold or hay-fever (allergies to pollens and other particles in the air) and cause symptoms of sinus congestion and fullness. A sinus infection causes fever, headache and facial pain. There is usually green or yellow drainage from the nose or into the back of the throat (post-nasal drip). Antibiotics are prescribed to treat this condition. Home Care: Drink plenty of water, hot tea, and other liquids to stay well hydrated. This thins the mucus and promotes sinus drainage. Apply heat to the painful areas of the face. Use a towel soaked in hot water. Or, project/production manager imaging the shower and direct the hot spray onto your face. This is a good way to inhale warm water vapor and get heat on your face at the same time. (Cover your mouth and nose with your hands so you can still breathe as you do this.) Use a vaporizer with products such as Vicks VapoRub (contains menthol) at night. Suck on peppermint, menthol or eucalyptus hard candies during the day. An expectorant containing guaifenesin (such as Robitussin), helps to thin the mucus and promote drainage from the sinuses. Sfza-soi-otwtatm decongestants may be used unless a similar medicine was prescribed. Nasal sprays work the fastest. Use one that contains phenylephrine (Javier-synephrine, Sinex and others) or oxymetazoline (Afrin). First blow the nose gently to remove mucus, then apply the drops. Do not use these medicines more often than directed on the label or for more than three days or symptoms may worsen. You may also use tablets containing pseudoephedrine (Sudafed). Many sinus remedies combine ingredients, which may increase side effects. Read the labels or ask the pharmacist for help. NOTE: Persons with high blood pressure should not use decongestants. They can raise blood pressure. Antihistamines are useful if allergies are a cause of your sinusitis. The mildest one is chlorpheniramine (available without a prescription). The dose for adults is 8-12mg three times a day. [NOTE: Do not use chlorpheniramine if you have glaucoma or if you are a man with trouble urinating due to an enlarged prostate.] Claritin (loratidine) is an antihistamine that causes less drowsiness and is a good alternative for daytime use. Do not use nasal rinses or irrigation during an acute sinus infection, unless advised by your doctor. Rinsing may spread the infection to other sinuses. You may use acetaminophen (Tylenol) or ibuprofen (Motrin, Advil) to control pain, unless another pain medicine was prescribed. [ NOTE: If you have chronic liver or kidney disease or ever had a stomach ulcer, talk with your doctor before using these medicines.] (Aspirin should never be used in anyone under 18 years of age who is ill with a fever. It may cause severe liver damage.) Finish the full course, even if you are feeling better after a few days. Follow Up with your doctor or this facility in one week or as instructed by our staff if not improving. Get Prompt Medical Attention if any of the following occur: Facial pain or headache becomes more severe Stiff neck Unusual drowsiness or confusion, or not acting like your normal self Swelling of the forehead or eyelids Vision problems including blurred or double vision Fever of 100.4F (38C) or higher, or as directed by your healthcare provider Seizure You have been given the following additional information: Sinusitis, Abx Tx Rest. Do not work tomorrow. (Electronically signed by Isac Conley MD 01/29/2017 23:40)
--- NOTE | 2017-01-29 23:40 | ED DISCHARGE INSTRUCTIONS ---
Patient: LORI PEARSON General Instructions [facility] VisitID: [id number] [address] [place] [address] 26y, F Registration Date/Time: 01/29/2017 Acute maxillary sinusitis (likely viral). INSTRUCTIONS Rest. Do not work tomorrow. Drink plenty of fluids. Warnings: GENERAL WARNINGS: Return or contact your physician immediately if your condition worsens or changes unexpectedly, if not improving as expected, or if other problems arise. Your Current Medications: CONTINUE TAKING THE FOLLOWING MEDICATIONS: Zithromax Oral. Understanding of the discharge instructions verbalized by patient. Follow-up with: [facility], , , [address], , [place], [id number] Follow up in seven days if not better. ADDITIONAL INFORMATION Sinusitis [Abx Tx] The sinuses are air-filled spaces within the bones of the face. They connect to the inside of the nose. Sinusitis is an inflammation of the tissue lining the sinus cavity. Sinus inflammation can occur during a cold or hay-fever (allergies to pollens and other particles in the air) and cause symptoms of sinus congestion and fullness. A sinus infection causes fever, headache and facial pain. There is usually green or yellow drainage from the nose or into the back of the throat (post-nasal drip). Antibiotics are prescribed to treat this condition. Home Care: Drink plenty of water, hot tea, and other liquids to stay well hydrated. This thins the mucus and promotes sinus drainage. Apply heat to the painful areas of the face. Use a towel soaked in hot water. Or, asbestos shingle roofer the shower and direct the hot spray onto your face. This is a good way to inhale warm water vapor and get heat on your face at the same time. (Cover your mouth and nose with your hands so you can still breathe as you do this.) Use a vaporizer with products such as Vicks VapoRub (contains menthol) at night. Suck on peppermint, menthol or eucalyptus hard candies during the day. An expectorant containing guaifenesin (such as Robitussin), helps to thin the mucus and promote drainage from the sinuses. [id number] decongestants may be used unless a similar medicine was prescribed. Nasal sprays work the fastest. Use one that contains phenylephrine (Javier-synephrine, Sinex and others) or oxymetazoline (Afrin). First blow the nose gently to remove mucus, then apply the drops. Do not use these medicines more often than directed on the label or for more than three days or symptoms may worsen. You may also use tablets containing pseudoephedrine (Sudafed). Many sinus remedies combine ingredients, which may increase side effects. Read the labels or ask the pharmacist for help. NOTE: Persons with high blood pressure should not use decongestants. They can raise blood pressure. Antihistamines are useful if allergies are a cause of your sinusitis. The mildest one is chlorpheniramine (available without a prescription). The dose for adults is 8-12mg three times a day. [NOTE: Do not use chlorpheniramine if you have glaucoma or if you are a man with trouble urinating due to an enlarged prostate.] Claritin (loratidine) is an antihistamine that causes less drowsiness and is a good alternative for daytime use. Do not use nasal rinses or irrigation during an acute sinus infection, unless advised by your doctor. Rinsing may spread the infection to other sinuses. You may use acetaminophen (Tylenol) or ibuprofen (Motrin, Advil) to control pain, unless another pain medicine was prescribed. [ NOTE: If you have chronic liver or kidney disease or ever had a stomach ulcer, talk with your doctor before using these medicines.] (Aspirin should never be used in anyone under 18 years of age who is ill with a fever. It may cause severe liver damage.) Finish the full course, even if you are feeling better after a few days. Follow Up with your doctor or this facility in one week or as instructed by our staff if not improving. Get Prompt Medical Attention if any of the following occur: Facial pain or headache becomes more severe Stiff neck Unusual drowsiness or confusion, or not acting like your normal self Swelling of the forehead or eyelids Vision problems including blurred or double vision Fever of 100.4F (38C) or higher, or as directed by your healthcare provider Seizure You have been given the following additional information: Sinusitis, Abx Tx Rest. Do not work tomorrow. (Electronically signed by Isac Conley MD 01/29/2017 23:40)
--- NOTE | 2017-01-29 23:40 | ED MED RECONCILIATION SUMMARY ---
Patient: DARLEEN PEARSONCA Luis Medication Reconciliation Report [facility] VisitID: [id number] [address] [place] [address] 26y, F Registration Date/Time: 01/29/2017 Weight: 113.3 kg Height/Length: 67 in. BMI: 39.2 ALLERGIES: Penicillins The patient's Home Medications are listed below: CONTINUE TAKING THE FOLLOWING MEDICATIONS: Zithromax Oral The source(s) of the original Home Medication information: patient The following Medications were given to the patient in the Emergency Department: None. The following Medications were prescribed to the patient: None.
== END 2017-01-29 21:58 | disposition home or self-care (01) ==
LOC: ED SRH 20:49
DX: J01.00 Acute maxillary sinusitis, unspecified (principal); Z88.1 Allergy status to other antibiotic agents